=== PATIENT | female | born 1960 | race Two or more races ===

== ENCOUNTER 2025-01-03 12:37 | Emergency (ER) | payer OTHER, SELFPAY ==
[~2025-01-03] VITALS: Ht 167.6 cm; Wt 60.0 kg
[2025-01-03 13:47] LABS: Hematocrit 39.2 % (36.0-46.0); Hemoglobin 13.4 g/dL (12.2-16.2); Mean Corpuscular Hemoglobin 30.9 pg (28.0-32.0); Mean Corpuscular Volume 90.3 fL (80.0-100.0); Nucleated Red Blood Cells % 0.1 %
[2025-01-03 13:50] VITALS: PULSE 80; RESP 17; O2SAT 95
[2025-01-03 13:53] LABS: Chloride 106 mmol/L (98-107); Potassium 3.7 mmol/L (3.5-5.1); Sodium 139 mmol/L (136-145)
[2025-01-03 13:54] LABS: Anion Gap 10 (5-15); Carbon Dioxide 23 mmol/L (20-31)
[2025-01-03 13:55] LABS: Calcium 8.4 mg/dL (8.7-10.4)
[2025-01-03 13:59] LABS: Glucose 88 mg/dL (74-106)
[2025-01-03 14:02] LABS: BUN/Creatinine Ratio 8.2 (10.0-20.0); Blood Urea Nitrogen < 5 mg/dL (9-23)
[2025-01-03 14:03] LABS: Acetaminophen 3.0 UG/ML (10.0-20.0); Salicylate < 3.0 mg/dL (-30)
[2025-01-03 14:33] LABS: Urine Protein, UAD Negative (Negative)
[2025-01-03 14:47] LABS: Amphetamine Screen, Urine Neg (NEGATIVE); Barbiturate Scree,Urine Neg (NEGATIVE); Benzodiazephine Screen, Urine Neg (NEGATIVE); Cannabinoid Screen, Urine Neg (NEGATIVE); Cocaine Screen, Urine Neg (NEGATIVE); Opiate Scree,Urine Neg (NEGATIVE); Phencyclidine Screen, Urine Neg (NEGATIVE)
--- NOTE | 2025-01-03 14:56 | ED.PDOC ---
History of Present Illness HPI Comments 64-year-old female brought in by ambulance with a chief complaint of an SI. Patient reports on feeling hopelessness, helplessness, and depression for a long time now. Patient reports that she has been depressed for years with thoughts of harming herself but with no attempt. Patient states that she had t hree shots of liquor and took about five, on mg tablets of Xanax with the alcohol after family problem. The daughter called EMS status post patient taking pills. Denies any other symptoms at this time. Denies HI, chills, fever, N/V/D, SOB, CP. No other associated symptoms, modifiers, recent injuries or sick contacts present at this time. Chief Complaint: Suicidal Time Seen by MD: 14:00 Reviewed Notes: Nurses Notes, Medications, Allergies Allergies: Coded Allergies: NO KNOWN ALLERGIES (Unverified , 01/03/25) Information Source: Patient Mode of Arrival: EMS Severity: Moderate Timing: Came on: Gradually Duration: Since onset Prehospital treatment: None Past Medical History PAST MEDICAL HISTORY: Denies Surgical History: Denies all surgeries HEADWAITRESS History: No Pertinent HEADWAITRESS History Family History Family History: Reviewed,noncontributory to illness, Unknown Social History Smoker: Non-Smoker Alcohol: Denies ETOH Use Drugs: Denies Drug Use Lives In: Home Constitutional: denies: chills, diaphoresis, fatigue, fever, malaise, sweats, weakness, others EENTM: denies: blurred vision, double vision, ear bleeding, ear discharge, ear drainage, ear pain, ear ringing, eye pain, eye redness, hearing loss, mouth pain, mouth swelling, nasal discharge, nose bleeding, nose congestion, nose pain, photophobia, tearing, throat pain, throat swelling, voice changes, others Respiratory: denies: cough, hemoptysis, orthopnea, SOB at rest, shortness of breath, SOB with excertion, stridor, wheezing, others Cardiovascular: denies: chest pain, dizzy spells, diaphoresis, Dyspnea on exertion, edema, irregular heart beat, left arm pain, lightheadedness, palp itations, PND, syncope, others Gastrointestinal: denies: abdomen distended, abdominal pain, blood streaked bowels, constipated, diarrhea, dysphagia, difficulty swallowing, hematemesis, melena, nausea, poor appetite, poor fluid intake, rectal bleeding, rectal pain, vomiting, others Genitourinary: denies: abnormal vagina bleeding, burning, dyspareunia, dysuria, flank pain, frequency, hematuria, incontinence, pain, , vagina discharge, urgency, others Neurological: denies: dizziness, fainting, headache, left sided numbness, left sided weakness, numbness, paresthesia, pre-existing deficit, right sided numbness, right sided weakness, seizure, speech problems, tingling, tremors, weakness, others Musculoskeletal: denies: back pain, gout, joint pain, joint swelling, muscle pain, muscle stiffness, neck pain, others Integumetry: denies: bruises, change in color, change in hair/nails, dryness, laceration, lesions, lumps, rash, wounds, others Allergic/Immunocompromised: denies: Difficulty Healing, Frequent Infections, Hives, Itching, others Hematologic/Lymphatic: denies: anemia, blood clots, easy bleeding, easy br uising, swollen glands, others Endocrine: denies: excessive hunger, excessive sweating, excessive thirst, excessive urination, flushing, intolerance to cold, intolerance to heat, unexplained weight gain, unexplained weight loss, others Psychiatric: reports: depression, hopeless, suicidal; denies: anxiety, bipolar disorder, panic disorder, schizophrenia, sleepless, others All Other Systems: Reviewed and Negative Physical Exam General Appearance: No Apparent Distress, Normal HEENT: Normal ENT Inspection, Pharynx Normal, TMs Normal Neck: Full Range of Motion, Non-Tender, Normal, Normal Inspection Respiratory: Chest Non-Tender, Lungs Clear, No Accessory Muscle Use, No Respiratory Distress, Normal Breath Sounds Cardiovascular: No Edema, No JVD, No Murmur, No Gallop, Normal Peripheral Pulses, Regular Rate/Rhythm Breast Exam: Deferred Gastrointestinal: No Organomegaly, Non Tender, No Pulsatile Mass, Normal Bowel Sounds, Soft Genitalia: Deferred Pelvic: Deferred Rectal: Deferred Extremities: No calf tenderness, Normal capillary refill, Normal inspection, Normal range of motion, Non-tender, No pedal edema Musculoskeletal : Apperance: Normal Neurologic: Alert, junior assistant manager II-XII nml as Tested, No Motor Deficits, Normal Affect, Normal Mood, No Sensory Deficits Cerebellar Function: Normal Reflexes: Normal Skin: Dry, Normal Color, Warm Lymphatic: No Adenopathy Was a procedure done? Was a procedure done?: No Differential Dx Considerations may include: Overdose, suicide ideation X-Ray, Labs, Meds, VS Vital Signs Date Time Temp Pulse Resp B/P (MAP) Pulse Ox O2 Delivery O2 Flow Rate FiO2 01/03/25 18:40 97.3 72 18 123/85 (98) 96 97.3 01/03/25 13:50 97.1 80 17 122/78 (93) 95 97.1 01/03/25 13:50 80 17 95 Room Air* 0 21 01/03/25 13:08 97.9 64 16 142/87 99 97.9 Lab Test 01/03/25 13:25 01/03/25 13:16 Range/Units White Blood Count 6.1 4.4-10.8 10^3/uL Red Blood Count 4.35 4.0-5.20 10^6/uL Hemoglobin 13.4 12.2-16.2 g/dL Hematocrit 39.2 36.0-46.0 % Mean Corpuscular Volume 90.3 80.0-100.0 fL Mean Corpuscular Hemoglobin 30.9 28.0-32.0 pg Mean Corpuscular Hemoglobin Concent 34.3 32.0-36.0 g/dL Red Cell Distribution Width 14.0 11.8-14.3 % Platelet Count 351 140-450 10^3/uL Mean Platelet Volume 6.9 6.9-10.8 fL Neutrophils (%) (Auto) 59.7 37.0-80.0 % Lymphocytes (%) (Auto) 31.4 10.0-50.0 % Monocytes (%) (Auto) 6.9 0.0-12.0 % Eosinophils (%) (Auto) 0.7 0.0-7.0 % Basophils (%) (Auto) 1.3 0.0-2.0 % Neutrophils # (Auto) 3.6 1.6-8.6 10 ^3/uL Lymphocytes # (Auto) 1.9 0.4-5.4 10 ^3/uL Monocytes # (Auto) 0.4 0-1.3 10 ^3/uL Eosinophils # (Auto) 0 0-0.8 10 ^3/uL Basophils # (Auto) 0.1 0-0.2 10 ^3/uL Nucleated Red Blood Cells 0.1 % Sodium Level 139 136-145 mmol/L Potassium Level 3.7 3.5-5.1 mmol/L Chloride Level 106 98-107 mmol/L Carbon Dioxide Level 23 20-31 mmol/L Anion Gap 10 5-15 Blood Urea Nitrogen < 5 L 9-23 mg/dL Creatinine 0.61 0.550-1.02 mg/dL Glomerular Filtration Rate Calc 101 >90 mL/min BUN/Creatinine Ratio 8.2 L 10.0-20.0 Serum Glucose 88 74-106 mg/dL Calcium Level 8.4 L 8.7-10.4 mg/dL Salicylates Level < 3.0 -30 mg/dL Acetaminophen Level 3.0 L 10.0-20.0 UG/ML Plasma/Serum Blood Alcohol 169.1 H <10 mg/dL Urine Color Straw Yellow Urine Clarity Clear Clear Urine pH 5.5 5.0-9.0 Urine Specific [place] 1.003 1.001-1.035 Urine Protein Negative Negative Urine Ketones Negative Negative Urine Blood Negative Negative /uL Urine Nitrite Negative Negative Urine Bilirubin Negative Negative Urine Urobilinogen Normal Negative mg/dL Urine Leukocyte Esterase Negative Negative /uL Urine RBC None seen 0 - 4 /hpf Urine Microscopic WBC < 1 0-5 /HPF Urine Squamous Epithelial Cells Few <5 /hpf Urine Bacteria None seen None Seen /hpf Urine Glucose Normal Normal mg/dL Urine Opiates Screen Neg NEGATIVE Urine Fentanyl Screen Neg NEGATIVE Urine Barbiturates Screen Neg NEGATIVE Urine Phencyclidine Screen Neg NEGATIVE Urine Amphetamines Screen Neg NEGATIVE Urine Benzodiazepines Screen Neg NEGATIVE Urine Cocaine Screen Neg NEGATIVE Urine Cannabinoids Screen Neg NEGATIVE Time of 1ST Reevaluation: 14:30 Reevaluation 1ST: Unchanged Patient Education/Counseling: Diagnosis, Treatment, Prognosis Family Education/Counseling: No Family Present SEPSIS Sepsis Screen Date sepsis recognized/suspect: Jan 03, 2025 Time Sepsis recognized/suspect: 1350 Recent Procedure: No On Antibiotic Therapy: No Respiratory Rate >20: No Heart Rate >90: No Temp<36 C (96.8 F) or >38.3 C: No SBP <90 or MAP <65 mmHG: No New Acute Mental Status Change: No Is the patient on CPAP, BIPAP,: No Physician Orders Soc Telemed Psych Consult (01/03/25 13:13) Regular Diet (01/04/25 Breakfast) Vital Signs Date Time Temp Pulse Resp B/P (MAP) Pulse Ox O2 Delivery O2 Flow Rate FiO2 01/03/25 18:40 97.3 72 18 123/85 (98) 96 97.3 01/03/25 13:50 97.1 80 17 122/78 (93) 95 97.1 01/03/25 13:50 80 17 95 Room Air* 0 21 01/03/25 13:08 97.9 64 16 142/87 99 97.9 Laboratory Tests Test 01/03/25 13:25 White Blood Count 6.1 10^3/uL (4.4-10.8) Departure 1 Departure Time of Disposition: 19:05 (Patient with a suicide attempt via pills and alcohol. Patient is medically cleared. Psychiatry recommends inpatient psychiatric treatment.) Impression: Primary Impression: Suicide ideation Additional Impression: Suicide attempt by benzodiazepine overdose [facility] Condition: Guarded Critical Care Note Critical Care Time?: Yes Critical care comment: Suicide attempt by overdose Authorized and Performed by: Rafa Calvert MD Total critical care time: Approximately 39 minutes Due to a high probability of clinically significant, life threatening deterioration, the patient required my highest level of preparedness to intervene emergently and I personally spent this critical care time directly and personally managing the patient. This critical care time included obtaining a history; examining the patient; pulse oximetry; ordering and review of studies; arranging urgent treatment with development of a management plan; evaluation of patient's response to treatment; frequent reassessment; and, discussions with other providers. This critical care time was performed to assess and manage the high probability of imminent, life-threatening deterioration that could result in multi-organ failure. It was exclusive of separately billable procedures and treating other patients and teaching time. Please see my other sections and the rest of the note for further information on patient assessment and treatment. Stability Stability form required: No I personally scribed for RAFA CALVERT MD ([email or web address]) on 01/03/25 at 14:56. Electronically submitted by Gaetano Flowers ([email or web address]). RAFA CALVERT MD Jan 03, 2025 14:56
--- NOTE | 2025-01-03 18:23 | DVHINCON2 ---
Date of Service if different f: Jan 03, 2025 Time of Service: 18:03 Consultation ([facility]) Consulting Physician: REGGIE RANGEL MD Progress: Declining Labs Laboratory Tests Test 01/03/25 13:16 01/03/25 13:25 Urine Color Straw (Yellow) Urine Clarity Clear (Clear) Urine pH 5.5 (5.0-9.0) Urine Specific [place] 1.003 (1.001-1.035) Urine Protein Negative (Negative) Urine Ketones Negative (Negative) Urine Blood Negative /uL (Negative) Urine Nitrite Negative (Negative) Urine Bilirubin Negative (Negative) Urine Urobilinogen Normal mg/dL (Negative) Urine Leukocyte Esterase Negative /uL (Negative) Urine RBC None seen /hpf (0 - 4) Urine Microscopic WBC < 1 /HPF (0-5) Urine Squamous Epithelial Cells Few /hpf (<5) Urine Bacteria None seen /hpf (None Seen) Urine Glucose Normal mg/dL (Normal) Urine Opiates Screen Neg (NEGATIVE) Urine Fentanyl Screen Neg (NEGATIVE) Urine Barbiturates Screen Neg (NEGATIVE) Urine Phencyclidine Screen Neg (NEGATIVE) Urine Amphetamines Screen Neg (NEGATIVE) Urine Benzodiazepines Screen Neg (NEGATIVE) Urine Cocaine Screen Neg (NEGATIVE) Urine Cannabinoids Screen Neg (NEGATIVE) White Blood Count 6.1 10^3/uL (4.4-10.8) Red Blood Count 4.35 10^6/uL (4.0-5.20) Hemoglobin 13.4 g/dL (12.2-16.2) Hematocrit 39.2 % (36.0-46.0) Mean Corpuscular Volume 90.3 fL (80.0-100.0) Mean Corpuscular Hemoglobin 30.9 pg (28.0-32.0) Mean Corpuscular Hemoglobin Concent 34.3 g/dL (32.0-36.0) Red Cell Distribution Width 14.0 % (11.8-14.3) Platelet Count 351 10^3/uL (140-450) Mean Platelet Volume 6.9 fL (6.9-10.8) Neutrophils (%) (Auto) 59.7 % (37.0-80.0) Lymphocytes (%) (Auto) 31.4 % (10.0-50.0) Monocytes (%) (Auto) 6.9 % (0.0-12.0) Eosinophils (%) (Auto) 0.7 % (0.0-7.0) Basophils (%) (Auto) 1.3 % (0.0-2.0) Neutrophils # (Auto) 3.6 10 ^3/uL (1.6-8.6) Lymphocytes # (Auto) 1.9 10 ^3/uL (0.4-5.4) Monocytes # (Auto) 0.4 10 ^3/uL (0-1.3) Eosinophils # (Auto) 0 10 ^3/uL (0-0.8) Basophils # (Auto) 0.1 10 ^3/uL (0-0.2) Nucleated Red Blood Cells 0.1 % Sodium Level 139 mmol/L (136-145) Potassium Level 3.7 mmol/L (3.5-5.1) Chloride Level 106 mmol/L (98-107) Carbon Dioxide Level 23 mmol/L (20-31) Anion Gap 10 (5-15) Blood Urea Nitrogen < 5 mg/dL (9-23) Creatinine 0.61 mg/dL (0.550-1.02) Glomerular Filtration Rate Calc 101 mL/min (>90) BUN/Creatinine Ratio 8.2 (10.0-20.0) Serum Glucose 88 mg/dL (74-106) Calcium Level 8.4 mg/dL (8.7-10.4) Salicylates Level < 3.0 mg/dL (-30) Acetaminophen Level 3.0 UG/ML (10.0-20.0) Plasma/Serum Blood Alcohol 169.1 mg/dL (<10) Appetite: Fair Side effects of medications: Other Appearance: Stated age Psychomotor activity: Restless Behavioral: Cooperative Eye contact: Avoids Speech: Soft Affect: Restricted Mood: Depressed Thought processes: Linear/Goal-directed Thought content: WNL Plan for (Suicide) SI with plan to OD on pills Plan for (Homicide) Denies Orientation: Person, Place, Time Memory intact: Recent Intellect: Average Abstractability: WNL Concentration: Limited Attention: Limited Judgement: WNL Insight: Fair Vitals Vital Signs Date Time Temp Pulse Resp B/P (MAP) Pulse Ox O2 Delivery O2 Flow Rate FiO2 01/03/25 13:50 97.1 80 17 122/78 (93) 95 97.1 11/15/25 13:50 Room Air* 0 21 Treatment plan discussed: With staff Medication adjusted: No Labs ordered: No Type: Voluntary Diagnosis Psychiatric Dx: MDD, 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 She has a known psychiatric history of Major Depressive Disorder (MDD) and Generalized Anxiety Disorder (STACY). She reports previous trials of Prozac and Zoloft and has a history of medication noncompliance and poor engagement with aftercare. She also has a history of alcohol use. The patient presented to the Emergency Department for evaluation of worsening depression, increasing anxiety, and possible suicidal ideation. The patient was evaluated in the [facility] triage room by the verse writer via the [facility] portal. On approach, she appeared anxious, tense, and intermittently guarded but was able to engage appropriately in the interview. Her speech was coherent and organized, and she remained cooperative throughout the encounter. She denied any auditory or visual hallucinations and did not endorse delusional thought content. She repeatedly emphasized that overwhelming anxiety has been her primary stressor. She described a progressive sense of emotional exhaustion and reported feeling increasingly worthless, helpless, and useless. These symptoms have intensified over the last several days, leading to suicidal ideation with a plan to overdose on pills. She denied any recent suicide attempts but acknowledged that her thoughts have become more intrusive and more difficult to control. She also reported significant stress related to multiple family illnesses and stated that two of her cats are currently dying, which has further contributed to her emotional deterioration. The patient described poor sleep with frequent interruptions and difficulty relaxing. She endorsed a noticeable decline in appetite and reports eating poorly over the last several days. Throughout the evaluation, she maintained poor eye contact and appeared overwhelmed, frustrated, and visibly distressed. She explained that her symptoms have progressively worsened and that she feels increasingly irritable and on edge. Despite her severe depressive symptoms, the patient denied homicidal ideation, panic attacks, symptoms of agoraphobia, spec ific phobias, social anxiety, or any manic-like symptoms. There was no evidence of pressured speech, grandiosity, or flight of ideas. Supportive therapy was provided during the evaluation. The patient was encouraged to process her current stressors and was guided through grounding techniques and basic coping strategies. Psychoeducation was provided regarding the importance of ongoing treatment, medication adherence, psychotherapy, and consistent aftercare follow-up. She verbalized understanding and expressed willingness to participate in treatment and follow the recommended plan. Clinically, the patients presentation is consistent with severe Generalized Anxiety Disorder with a concurrent worsening of depressive symptoms, including hopelessness, impaired functioning, emotional instability, and active suicidal ideation with a plan. Her decreased appetite and recent weight loss further reflect the severity of her psychiatric condition. Given the level of emotional distress, declining coping capacity, and the presence of suicidal ideation with a plan, inpatient psychiatric admission is indicated for stabilization, safety monitoring, and continued treatment. The plan is to admit the patient to the inpatient psychiatric unit for ongoing safety monitoring, further psychiatric assessment, and stabilization. Family history -Family historu with schizophrenia Past Psychiatric History. - Past psychiatric history significant for anxiety and depression -History of Zoloft and Lexapro use -History of inpatient admission -Denies any history of Violence. Social/developmental History. -Pt is single and lives with boyfriend -Pt is unemployed -Denies any access to weapons or guns -Denies any history of services. -Denies any History of abuse including sexual, physical or emotional abuse -Denies any history probation, parole or custodial. Substance Abuse -History of alcoholism. Denies any history of alcohol withdrawal seizure Past Medical History/Allergies -HLD, HTN , DM -Allergies: NKDA Review of Systems Review of systems, please see the HPI and problem list above. Otherwise: -Constitutional symptoms: None reported. -Eye/ENT: None reported -Respiratory symptoms: None reported. -Cardiovascular symptoms: None reported. -GI symptoms: None reported. -Musculoskeletal symptoms: None reported -Neurologic symptoms: None reported -Psychiatric symptoms: See HPI -Other significant review of systems: None reported. Musculoskeletal/neurological Examination -Pt was noted to have a norm body habitus. -Muscle Strength and tone was considered normal. -No spasticity or EPS were noted. -Gait and station were normal. Assessment/Plan The patient is a 64-year-old single White female who resides with her daughter and boyfriend and is currently unemployed. She has a known psychiatric history of Major Depressive Disorder (MDD) and Generalized Anxiety Disorder (STACY). She reports previous trials of Prozac and Zoloft and has a history of medication noncompliance and poor engagement with aftercare. She also has a history of alcohol use. The patient presented to the Emergency Department for evaluation of worsening depression, increasing anxiety, and possible suicidal ideation. During the evaluation, the patient endorsed significant depressive symptoms, worsening anxiety, and passive suicidal ideation with a plan to overdose on pills. She described feeling overwhelmed and unable to cope with her current emotional stressors. Psychoeducation was provided regarding coping skills, emotional regulation, and the importance of continuation of care, including medication management and psychotherapy. The patient verbalized understanding and expressed agreement with the recommended treatment interventions. The patient meets criteria for a 5150 hold due to danger to self in the context of worsening depression, emotional instability, impaired coping, and the presence of suicidal ideation with a plan. She remains cooperative with the evaluation and will be admitted as a voluntary patient for further stabilization, monitoring, and treatment. 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 Obtain UDS. Continue current psychiatric medications. Risks, benefits, and alternatives were discussed in detail. Start Remeron 15mg po qhs for sleep and depression. Risks and benefits were discussed in details Continue safety monitoring and reassess as needed. Case was discussed with the ED provider . Assessment/Diagnosis/Plan Reviewed: Consults (Discussed with the ED MD ) REGGIE RANGEL MD Jan 03, 2025 18:23
[2025-01-03 20:46] VITALS: PULSE 78; RESP 18; O2SAT 97
[2025-01-04 07:53] VITALS: PULSE 88; RESP 16; O2SAT 95
[2025-01-04 20:00] VITALS: PULSE 82; RESP 17; O2SAT 92
[2025-01-05] MEDS: ACETAMINOPHEN 500 MG TAB or CAP PO ONE (03:13)
[2025-01-05 07:50] VITALS: BP 149/93; TEMP 98
[2025-01-05 07:51] VITALS: PULSE 82; RESP 16; O2SAT 97
--- NOTE | 2025-01-05 11:37 | DVHINCON2 ---
Date of Service if different f: Jan 05, 2025 Time of Service: 11:34 Consultation ([facility]) Consulting Physician: FLAVIO CORMIER MD Progress: Better Labs Laboratory Tests Test 01/03/25 13:16 01/03/25 13:25 Urine Color Straw (Yellow) Urine Clarity Clear (Clear) Urine pH 5.5 (5.0-9.0) Urine Specific [place]ona 1.003 (1.001-1.035) Urine Protein Negative (Negative) Urine Ketones Negative (Negative) Urine Blood Negative /uL (Negative) Urine Nitrite Negative (Negative) Urine Bilirubin Negative (Negative) Urine Urobilinogen Normal mg/dL (Negative) Urine Leukocyte Esterase Negative /uL (Negative) Urine RBC None seen /hpf (0 - 4) Urine Microscopic WBC < 1 /HPF (0-5) Urine Squamous Epithelial Cells Few /hpf (<5) Urine Bacteria None seen /hpf (None Seen) Urine Glucose Normal mg/dL (Normal) Urine Opiates Screen Neg (NEGATIVE) Urine Fentanyl Screen Neg (NEGATIVE) Urine Barbiturates Screen Neg (NEGATIVE) Urine Phencyclidine Screen Neg (NEGATIVE) Urine Amphetamines Screen Neg (NEGATIVE) Urine Benzodiazepines Screen Neg (NEGATIVE) Urine Cocaine Screen Neg (NEGATIVE) Urine Cannabinoids Screen Neg (NEGATIVE) White Blood Count 6.1 10^3/uL (4.4-10.8) Red Blood Count 4.35 10^6/uL (4.0-5.20) Hemoglobin 13.4 g/dL (12.2-16.2) Hematocrit 39.2 % (36.0-46.0) Mean Corpuscular Volume 90.3 fL (80.0-100.0) Mean Corpuscular Hemoglobin 30.9 pg (28.0-32.0) Mean Corpuscular Hemoglobin Concent 34.3 g/dL (32.0-36.0) Red Cell Distribution Width 14.0 % (11.8-14.3) Platelet Count 351 10^3/uL (140-450) Mean Platelet Volume 6.9 fL (6.9-10.8) Neutrophils (%) (Auto) 59.7 % (37.0-80.0) Lymphocytes (%) (Auto) 31.4 % (10.0-50.0) Monocytes (%) (Auto) 6.9 % (0.0-12.0) Eosinophils (%) (Auto) 0.7 % (0.0-7.0) Basophils (%) (Auto) 1.3 % (0.0-2.0) Neutrophils # (Auto) 3.6 10 ^3/uL (1.6-8.6) Lymphocytes # (Auto) 1.9 10 ^3/uL (0.4-5.4) Monocytes # (Auto) 0.4 10 ^3/uL (0-1.3) Eosinophils # (Auto) 0 10 ^3/uL (0-0.8) Basophils # (Auto) 0.1 10 ^3/uL (0-0.2) Nucleated Red Blood Cells 0.1 % Sodium Level 139 mmol/L (136-145) Potassium Level 3.7 mmol/L (3.5-5.1) Chloride Level 106 mmol/L (98-107) Carbon Dioxide Level 23 mmol/L (20-31) Anion Gap 10 (5-15) Blood Urea Nitrogen < 5 mg/dL (9-23) Creatinine 0.61 mg/dL (0.550-1.02) Glomerular Filtration Rate Calc 101 mL/min (>90) BUN/Creatinine Ratio 8.2 (10.0-20.0) Serum Glucose 88 mg/dL (74-106) Calcium Level 8.4 mg/dL (8.7-10.4) Salicylates Level < 3.0 mg/dL (-30) Acetaminophen Level 3.0 UG/ML (10.0-20.0) Plasma/Serum Blood Alcohol 169.1 mg/dL (<10) Vitals Vital Signs Date Time Temp Pulse Resp B/P (MAP) Pulse Ox O2 Delivery O2 Flow Rate FiO2 01/05/25 07:51 82 16 97 Room Air* 0 21 01/05/25 07:50 98.0 149/93 (111) 98.0 Treatment plan discussed: With staff Medication adjusted: No Labs ordered: No Type: Voluntary PSYCHIATRY CONSULTATION FOLLOW UP NOTE Reason for Evaluation: Reassessment of suicidality and disposition planning SUBJECTIVE: Pt has been in the ER 3 days. Says she presented to the hospital after having lots of issues, including grief, family illness. Pt did report SI when she first presented. Says she was just suicidal in moment. She denies current SI. Denies history of SIB or SA. Pt denies access to firearms. Pt has been drinking about twice per week, up to 3 white claws. She denies h/o blacking out, no h/o alcohol withdrawal. Pt denies drug use. Discussed increase risk of suicide secondary. Pts daughter is at bedside. Daisy will take her home to eat and shower, then they will go to [facility]. Daisy denies concerns for pts safety if discharged from the hospital. OBJECTIVE: The patient is sitting comfortably in bed, with good grooming and hygiene. She is calm, cooperative, and fully engaged in the interview. Eye contact is appropriate. Speech is spontaneous, fluent, and normal in rate and tone. Mood is described as better, with euthymic and congruent affect. Thought process is l inear and goal-directed. Thought content is without suicidal or homicidal ideation, auditory or visual hallucinations, or delusional themes. There is no evidence of paranoia, kim, or internal preoccupation. Cognition is grossly intact; she is alert and oriented to person, place, time, and situation. Insight and judgment are good, demonstrated by her ability to reflect on recent s tressors and her plan to follow up with outpatient care. DDX Adjustment Disorder with Depressed Mood Unspecified Anxiety Disorder Major Depressive Episode, resolved Grief Reaction ASSESSMENT: The patient initially presented with suicidal ideation in the context of grief and family illness but now denies any ongoing thoughts of self-harm, intent, or plan. She has maintained stability during her three-day stay in the emergency department, with no behavioral disturbances, psychosis, or signs of acute mood episode. Her daughter is present, supportive, and able to provide safe supervision and transportation home. The patient expresses motivation to eat, shower, and attend a scheduled appointment at [facility] later today. She has protective factors including family support, insight, and willingness to seek outpatient treatment. There is no evidence of ongoing psychiatric emergency or criteria for involuntary intermediate. Safety Assessment Suicide Risk: Low at this time. Denies SI, plan, or intent. No prior attempts. Demonstrates future orientation and engagement in outpatient follow-up. Homicide Risk: None. Denies HI. Psychosis / Kim: None observed. Substance Risk: Minimal; moderate alcohol use without history of withdrawal or loss of control. Protective Factors: Supportive family, help-seeking behavior, motivation for follow-up, stable affect, insight, and no access to firearms. Overall: The patient is psychiatrically stable, and a 5150 or inpatient psychiatric admission is not indicated. RECOMMENDATIONS: 1. Legal: Discontinue [address]; criteria no longer met. 2. Disposition: Safe for discharge home with her daughter. Plan for follow-up at [facility] today. 3. Medications: Continue any previously prescribed non-psychiatric medications; no new psychiatric medications indicated at this time. 4. Follow-up Plan: - Attend [facility] for evaluation and linkage to therapy or outpatient psychiatric services. - Encourage ongoing engagement with family and primary care provider. - Maintain healthy sleep, nutrition, and limit alcohol consumption. 5. Crisis and Safety Resources: - If experiencing worsening depression or suicidal thoughts, call 988 (Suicide and Crisis Lifeline) or go to the nearest emergency department. - Patient and family provided crisis line information and verbalize understanding. Assessment/Diagnosis/Plan Reviewed: Consults (Discussed with the ED MD ) FLAVIO CORMIER MD Jan 05, 2025 11:37
--- NOTE | 2025-01-05 12:11 | ED.PDOC ---
Departure 1 Departure Time of Disposition: 12:04 (Patient was re-evaluated by Psychiatry and deemed cleared for discharge. We will discharge patient home with outpatient follow up) Impression: Primary Impression: Suicide ideation Additional Impression: Suicide attempt by benzodiazepine overdose Disposition: HOME / SELF CARE / HOMELESS Condition: Stable Additional Instructions: Discharge Note: Continue on your medications. Drink plenty of fluids. Follow up with your primary Dr. No weight bearing. Take your prescriptions as ordered. If your condition becomes worse call and follow up with your primary Dr. for instructions or return to the ER if needed. Thank you for visiting [facility]. RAFA MARTINS MD Jan 05, 2025 12:11
== END 2025-01-05 12:12 | disposition home or self-care (01) ==
LOC: EDBD 12:37 → ER 12:37
DX: T42.4X2A Poisoning by benzodiazepines, intentional self-harm, initial encounter (principal); R45.851 Suicidal ideations; I10 Essential (primary) hypertension; E78.5 Hyperlipidemia, unspecified; E11.9 Type 2 diabetes mellitus without complications; Y92.89 Other specified places as the place of occurrence of the external cause
CPT/HCPCS: 36415; 80048; 80307; 80320; 80329; 81001; 85025; 99291